=== PATIENT | female | born 1995 | race Hispanic/Latino ===

== ENCOUNTER 2018-06-30 07:57 | Emergency (ER) | payer SELFPAY ==
[2018-06-30] MEDS ORDERED: CIPROFLOXACIN 400mg IV 400 MG/200 ML BAG IV ONE (08:50)
[2018-06-30] MEDS ORDERED: FAMOTIDINE 20 MG/2 ML VIAL IV ONE (08:50)
[2018-06-30] MEDS ORDERED: METRONIDAZOLE 500mg IVPB 500 MG/100 ML BAG IV ONE (08:50)
[2018-06-30] MEDS ORDERED: ONDANSETRON 4 MG/2 ML VIAL ONE ×2 (08:50→09:57)
[2018-06-30] MEDS ORDERED: NA CHLORIDE 0.9% 1,000 ML ONE (08:50)
[2018-06-30 09:06] LABS: Albumin 4.1 g/dL (3.4-5.0); Bilirubin Direct 0.2 mg/dL (0-0.2); Bilirubin Total 0.9 mg/dL (0.2-1.0); Potassium 3.6 mmol/L (3.5-5.1); Protein, Total 9.2 g/dL (6.4-8.2)
[2018-06-30 09:32] LABS: MPV 8.7 fL (7.6-11.3); RBC Red Blood Cell Count 5.56 M/uL (3.86-4.86)
[2018-06-30 10:31] LABS: Platelet Estimate ADEQ
[2018-06-30 10:32] LABS: Blood Morphology Comment NOT SEEN (NOT SEEN)
--- NOTE | 2018-06-30 11:27 | EKG ---
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
--- NOTE | 2018-06-30 11:40 | ER ---
Nurse's Notes [facility] Name: Sharona Reid Age: 22 yrs Sex: Female : 1995 Arrival Date: 06/30/2018 Time: 07:59 Bed 6 Private MD: Diagnosis: Vomiting;Diarrhea, unspecified Presentation: 06/30 08:05 Presenting complaint: Patient states: N/V/D that began at 0200 this morning. Denies ss pain. Transition of care: patient was not received from another setting of care. Onset of symptoms was June 30, 2018. Risk Assessment: Do you want to hurt yourself or someone else? Patient reports no desire to harm self or others. Initial Sepsis Screen: Does the patient meet any 2 criteria? HR > 90 bpm. Does the patient have a suspected source of infection? No. Patient's initial sepsis screen is negative. Care prior to arrival: None. 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 - Social history:: Smoking status: Patient/guardian denies using tobacco. - Ebola Screening: : Patient denies exposure to infectious person Patient denies travel to an Ebola-affected area in the 21 days before illness onset. Screenin:00 Abuse screen: Denies threats or abuse. Denies injuries from another. Nutritional ph screening: No deficits noted. Tuberculosis screening: No symptoms or risk factors identified. Fall Risk None identified. Assessment: 08:09 General: Appears in no apparent distress. uncomfortable, Behavior is calm, cooperative, ph appropriate for age, Denies fever. Pain: Denies pain. Neuro: Level of Consciousness is awake, alert, obeys commands, Oriented to person, place, time, situation. Cardiovascular: Capillary refill < 3 seconds in bilateral fingers Patient's skin is warm and dry. Respiratory: Airway is patent Respiratory effort is even, unlabored. GI: Abdomen is non-distended, Bowel sounds present X 4 quads. Abd is soft and non tender X 4 quads. Reports diarrhea, nausea, vomiting. : Denies burning with urination, urinary frequency. Derm: Skin is intact, Skin is pink, warm \T\ dry. Musculoskeletal: Circulation, motion, and sensation intact. Range of motion: intact in all extremities. 09:45 Reassessment: Patient appears in no apparent distress at this time. Patient and/or ph family updated on plan of care and expected duration. Pain level reassessed. Patient is alert, oriented x 3, equal unlabored respirations, skin warm/dry/pink. Pt reports that nausea has improved. 10:00 Reassessment: Patient appears in no apparent distress at this time. Patient is alert, ph oriented x 3, equal unlabored respirations, skin warm/dry/pink. Pt reports that nausea has returned, ERP notified, see MAR. 11:05 Reassessment: Patient appears in no apparent distress at this time. Patient and/or ph family updated on plan of care and expected duration. Pain level reassessed. Patient is alert, oriented x 3, equal unlabored respirations, skin warm/dry/pink. 11:58 Reassessment: Patient appears in no apparent distress at this time. Patient and/or ph family updated on plan of care and expected duration. Pain level reassessed. Patient is alert, oriented x 3, equal unlabored respirations, skin warm/dry/pink. Pt d/c home w/ family. Vital Signs: 08:06 BP 90 / 66; Pulse 97; Resp 14; Temp 97.8(TE); Pulse Ox 99% on R/A; Pain 0/10; ss 09:30 BP 92 / 65; Pulse 92; Resp 18; Pulse Ox 100% on R/A; ph 11:06 BP 86 / 74; Pulse 95; Resp 18; Pulse Ox 99% on R/A; ph 11:45 BP 103 / 68; Pulse 91; Resp 18; Temp 97.9; Pulse Ox 99% on R/A; ph ED Course: 07:59 Patient arrived in ED. rg4 08:02 Yanet Morocho, RN is Primary Nurse. ph 08:06 Triage completed. ss 08:06 Arm band placed on right wrist. ss 08:08 José Obrien MD is Attending Physician. kdr 08:26 EKG done, by lab support service tech. reviewed by José Obrien MD. sm3 08:35 Inserted saline lock: 20 gauge in right antecubital area, using aseptic technique. ph Blood collected. 10:00 Patient has correct armband on for positive identification. Placed in gown. Bed in low ph position. Call light in reach. Side rails up X 1. Pulse ox on. NIBP on. Door closed. Noise minimized. Warm blanket given. 11:59 No provider procedures requiring assistance completed. IV discontinued, intact, ph bleeding controlled, No redness/swelling at site. Pressure dressing applied. Administered Medications: 08:52 Drug: Pepcid 20 mg Route: IVP; Site: right antecubital; ph 09:44 Follow up: Response: No adverse reaction; Nausea is decreased ph 08:52 Drug: Zofran 4 mg Route: IVP; Site: right antecubital; ph 09:44 Follow up: Response: No adverse reaction; Nausea is decreased ph 08:52 Not Given (Other Intervention Used): Flagyl 500 mg PO once ph 08:52 Not Given (Other Intervention Used): Cipro 500 mg PO once ph 08:52 Drug: Flagyl 500 mg Volume: 100 ml; Route: IVPB; Rate: 200 ml/hr; Infused Over: 30 ph mins; Site: right antecubital; 09:21 Follow up: Response: No adverse reaction; IV Status: Completed infusion ph 08:53 Drug: NS 0.9% 1000 ml Route: IV; Rate: 1 bolus; Site: right antecubital; ph 09:44 Follow up: Response: No adverse reaction; IV Status: Completed infusion ph 09:21 Drug: Cipro 400 mg Volume: 200 ml; Route: IVPB; Infused Over: 60 mins; Site: right ph antecubital; 11:12 Follow up: Response: No adverse reaction; IV Status: Completed infusion ph 09:59 Drug: Zofran 4 mg Route: IVP; Site: right antecubital; ph 11:12 Follow up: Response: No adverse reaction; Nausea is decreased ph Outcome: 11:40 Discharge ordered by . kdr 11:59 Discharged to home ambulatory, with family. ph 11:59 Condition: improved 11:59 Discharge instructions given to patient, Instructed on discharge instructions, follow up and referral plans. medication usage, Demonstrated understanding of instructions, follow-up care, medications, Prescriptions given X 1. 11:59 Patient left the ED. ph Signatures: José Obrien MD MD [facility] Mary Potts RN RN ss Yanet Morocho RN RN Dee Reid [facility] Esperanza Soto [facility]
--- NOTE | 2018-06-30 11:40 | EDPHYS ---
Physician Documentation [facility] Name: Sharona Reid Age: 22 yrs Sex: Female : 1995 Arrival Date: 06/30/2018 Time: 07:59 Bed 6 Private MD: ED Physician José Obrien HPI: 06/30 08:23 This 22 yrs old Female presents to ER via Ambulatory with complaints of kdr Vomiting/Diarrhea. 08:23 The patient presents to the emergency department with nausea, that is mild, vomiting, kdr that is intermittent, described as undigested food, diarrhea, that is intermittent, abdominal pain, of the abdomen diffusely, With vomiting. Onset: The symptoms/episode began/occurred suddenly, at 02:00. Possible causes: unknown. The symptoms are aggravated by movement, The symptoms are alleviated by remaining still. Associated signs and symptoms: The patient has no apparent associated signs or symptoms. Severity of symptoms: At their worst the symptoms were mild in the emergency department the symptoms are unchanged. The patient has not experienced similar symptoms in the past. The patient has not recently seen a physician. 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 - Social history:: Smoking status: Patient/guardian denies using tobacco. - Ebola Screening: : Patient denies exposure to infectious person Patient denies travel to an Ebola-affected area in the 21 days before illness onset. ROS: 08:23 Constitutional: Negative for fever, chills, and weight loss, Eyes: Negative for injury, kdr pain, redness, and discharge, Neck: Negative for injury, pain, and swelling, Cardiovascular: Negative for chest pain, palpitations, and edema, Respiratory: Negative for shortness of breath, cough, wheezing, and pleuritic chest pain, Back: Negative for injury and pain, : Negative for injury, bleeding, discharge, and swelling, MS/Extremity: Negative for injury and deformity, Skin: Negative for injury, rash, and discoloration, Neuro: Negative for headache, weakness, numbness, tingling, and seizure activity. Psych: Negative for depression, anxiety, suicide ideation, homicidal ideation, and hallucinations, Allergy/Immunology: Negative for hives, rash, and allergies, Endocrine: Negative for neck swelling, polydipsia, polyuria, polyphagia, and marked weight changes, Hematologic/Lymphatic: Negative for swollen nodes, abnormal bleeding, and unusual bruising. 08:23 Abdomen/GI: Positive for abdominal pain, nausea, vomiting, and diarrhea, Negative for dysphagia, hematemesis, black/tarry stool, rectal pain, rectal bleeding, bowel incontinence. Exam: 08:23 Constitutional: This is a well developed, well nourished patient who is awake, alert, kdr and in no acute distress. Head/Face: Normocephalic, atraumatic. Eyes: Pupils equal round and reactive to light, extra-ocular motions intact. Lids and lashes normal. Conjunctiva and sclera are non-icteric and not injected. Cornea within normal limits. Periorbital areas with no swelling, redness, or edema. Neck: Trachea midline, no thyromegaly or masses palpated, and no cervical lymphadenopathy. Supple, full range of motion without nuchal rigidity, or vertebral point tenderness. No Meningismus. Chest/axilla: Normal chest wall appearance and motion. Nontender with no deformity. No lesions are appreciated. Cardiovascular: Regular rate and rhythm with a normal S1 and S2. No gallops, murmurs, or rubs. Normal PMI, no JVD. No pulse deficits. Respiratory: Lungs have equal breath sounds bilaterally, clear to auscultation and percussion. No rales, rhonchi or wheezes noted. No increased work of breathing, no retractions or nasal flaring. Abdomen/GI: Soft, non-tender, with normal bowel sounds. No distension or tympany. No guarding or rebound. No evidence of tenderness throughout. Back: No spinal tenderness. No costovertebral tenderness. Full range of motion. Skin: Warm, dry with normal turgor. Normal color with no rashes, no lesions, and no evidence of cellulitis. MS/ Extremity: Pulses equal, no cyanosis. Neurovascular intact. Full, normal range of motion. Neuro: Awake and alert, GCS 15, oriented to person, place, time, and situation. Cranial nerves II-XII grossly intact. Motor strength 5/5 in all extremities. Sensory grossly intact. Cerebellar exam normal. Normal gait. Psych: Awake, alert, with orientation to person, place and time. Behavior, mood, and affect are within normal limits. Vital Signs: 08:06 BP 90 / 66; Pulse 97; Resp 14; Temp 97.8(TE); Pulse Ox 99% on R/A; Pain 0/10; ss 09:30 BP 92 / 65; Pulse 92; Resp 18; Pulse Ox 100% on R/A; ph 11:06 BP 86 / 74; Pulse 95; Resp 18; Pulse Ox 99% on R/A; ph 11:45 BP 103 / 68; Pulse 91; Resp 18; Temp 97.9; Pulse Ox 99% on R/A; ph MDM: 08:23 Data reviewed: vital signs, nurses notes, lab test result(s), EKG, radiologic studies. kdr Counseling: I had a detailed discussion with the patient and/or guardian regarding: the historical points, exam findings, and any diagnostic results supporting the discharge/admit diagnosis, lab results, radiology results, the need for outpatient follow up. 11:40 Patient medically screened. kdr 06/30 08:23 Order name: Basic Metabolic Panel; Complete Time: 09:46 kdr 06/30 08:23 Order name: CBC with Diff; Complete Time: 10:37 kdr 06/30 08:23 Order name: Creatinine for Radiology; Complete Time: 09:46 kdr 06/30 08:23 Order name: Hepatic Function; Complete Time: 09:46 kdr 06/30 08:23 Order name: Lipase; Complete Time: 09:46 kdr 06/30 09:38 Order name: Manual Differential; Complete Time: 10:37 EDMS 06/30 08:23 Order name: IV Saline Lock; Complete Time: 08:53 kdr 06/30 08:23 Order name: Labs collected and sent; Complete Time: 08:53 kdr 06/30 08:29 Order name: EKG Electrocardiogram EDMS Administered Medications: 08:52 Drug: Pepcid 20 mg Route: IVP; Site: right antecubital; ph 09:44 Follow up: Response: No adverse reaction; Nausea is decreased ph 08:52 Drug: Zofran 4 mg Route: IVP; Site: right antecubital; ph 09:44 Follow up: Response: No adverse reaction; Nausea is decreased ph 08:52 Not Given (Other Intervention Used): Flagyl 500 mg PO once ph 08:52 Not Given (Other Intervention Used): Cipro 500 mg PO once ph 08:52 Drug: Flagyl 500 mg Volume: 100 ml; Route: IVPB; Rate: 200 ml/hr; Infused Over: 30 ph mins; Site: right antecubital; 09:21 Follow up: Response: No adverse reaction; IV Status: Completed infusion ph 08:53 Drug: NS 0.9% 1000 ml Route: IV; Rate: 1 bolus; Site: right antecubital; ph 09:44 Follow up: Response: No adverse reaction; IV Status: Completed infusion ph 09:21 Drug: Cipro 400 mg Volume: 200 ml; Route: IVPB; Infused Over: 60 mins; Site: right ph antecubital; 11:12 Follow up: Response: No adverse reaction; IV Status: Completed infusion ph 09:59 Drug: Zofran 4 mg Route: IVP; Site: right antecubital; ph 11:12 Follow up: Response: No adverse reaction; Nausea is decreased ph Disposition: 06/30/18 11:40 Discharged to Home. Impression: Vomiting, Diarrhea, unspecified. - Condition is Stable. - Discharge Instructions: Nausea and Vomiting, Adult, Diarrhea, Adult, [id number]. - Prescriptions for Zofran 4 mg/5 mL Oral Solution - take 2.5 milliliter by ORAL route every 6 hours As needed; 40 milliliter. - Medication Reconciliation Form, Thank You Letter form. - Follow up: Private Physician; When: 2 - 3 days; Reason: If symptoms return, Further diagnostic work-up, Recheck today's complaints, Continuance of care, Re-evaluation by your physician. - Problem is new. - Symptoms have improved. Signatures: Dispatcher [employer] EDMS José Obrien MD MD [facility] Mary Potts RN RN Yanet Morocho RN RN ph Corrections: (The following items were deleted from the chart) 11:59 11:40 06/30/2018 11:40 Discharged to Home. Impression: Vomiting; Diarrhea, unspecified. ph Condition is Stable. Forms are Medication Reconciliation Form, Thank You Letter, Antibiotic Education, Prescription Opioid Use. Follow up: Private Physician; When: 2 - 3 days; Reason: If symptoms return, Further diagnostic work-up, Recheck today's complaints, Continuance of care, Re-evaluation by your physician. Problem is new. Symptoms have improved. kdr
== END 2018-06-30 11:59 | disposition home or self-care (01) ==
LOC: ER 07:57
DX: R11.2 Nausea with vomiting, unspecified (principal); R19.7 Diarrhea, unspecified
CPT/HCPCS: 36415; 80048; 80076; 83690; 85025; 93005; J0744; J2405; J7030